=== PATIENT | female | born 1990 | race Caucasian/White ===

== ENCOUNTER 2016-08-31 11:03 | Emergency (ER) | payer OTHER ==
--- NOTE | ~2016-08-31 | CR110 ---
[facility] A Service of [facility] & [facility] RADIOLOGY TEXT RESULTS PATIENT: EMORY SORTO LOCATION: CFTX : 88 UNIT #: [id number] AGE: [address]: Clarissa Foss SEX: F ORDER DR: [id number] [facility] [address] [place], [place] [address] [id number] E MR#: [id number] Acc #: [id number] NAME: EMORY SORTO : 1990 SEX: F STUDY DATE/TIME: 08/31/2016 10:46 UNIT: [facility] ROOM: STUDY DESCRIPTION: CR Finger 2 View 3rd Lt Attending Physician: Clarissa Foss P.A.-C. Ordering Physician: Clarissa Foss P.A.-C. Primary Care Physician: Makayla Chopra MEDICAL IMAGING REPORT This report is preliminary unless electronic signature is present EXAM Left third finger INDICATIONS Pain in third finger since yesterday with no known injury. FINDINGS There is no evidence of fracture, dislocation, or radiopaque foreign body. IMPRESSION Normal third finger. Dictated by... Josue Mendoza M.D. THIS IS AN ELECTRONICALLY VERIFIED REPORT Josue Mendoza M.D. at 08/31/2016 1:53 PM DAVY/pedro TD: 08/31/2016 13:29 JOB #: [id number] MEDICAL IMAGING REPORT Page 1 of 1 COPY
[~2016-08-31 11:03] MED LIST: ALBUTEROL17 G1 IH; AMOXICILLIN875 MG PO; BENZONATATE PO; CLEOCIN PO; DOXYCYCLINE150 MG PO; ERY-TAB500 MG PO; FLEXERIL10 M1 PO; FLEXERIL10 MG PO; FLONASE16 GM; LORTAB 5/500 TA1 TA1 PO; MAGIC MOUTHWASH; MEDROL DOSEPAK4 MG; MEDROL DOSEPAK4 MG DOB; NAPROSYN500 MG PO; NO MEDICATIONS; PERCOCET 5-3251 TAB PO; PRENATAL1 TA1 PO; TYLENOL #3 PO; VOLTAREN75 MG PO; ZITHROMAX PO
== END 2016-08-31 11:42 | disposition home or self-care (01) ==
LOC: CFTX 11:03
DX: S63.613A Unspecified sprain of left middle finger, initial encounter (principal); W22.8XXA Striking against or struck by other objects, initial encounter; Y92.009 Unspecified place in unspecified non-institutional (private) residence as the place of occurrence of the external cause
CPT/HCPCS: 29130; 73140; 99283